=== PATIENT | male | born 2000 | race Caucasian/White ===

== ENCOUNTER 2022-10-31 00:09 | Inpatient (IN) | payer OTHER ==
[~2022-10-31] VITALS: Ht 175.3 cm; Wt 85.0 kg
[2022-10-31 00:59] LABS: HEMATOCRIT 39.7 % (42.0-52.0); HEMOGLOBIN 13.8 g/dl (13.5-17.5); MEAN CORPUSCULAR HEMOGLOBIN 31.2 pg (27.0-33.0); MEAN CORPUSCULAR HGB CONC 34.8 g/dl (32.0-36.5); MEAN CORPUSCULAR VOLUME 89.6 fl (80.0-96.0); PLATELET COUNT, AUTOMATED 339 10^3/uL (150-450); RED BLOOD COUNT 4.43 10^6/uL (4.30-6.10)
[2022-10-31 01:03] LABS: ETHYL ALCOHOL (ETHANOL) 0.028 % (0.000-0.010)
[2022-10-31 01:05] LABS: BILIRUBIN,DIRECT 0.1 MG/DL (<0.4); SALICYLATE LEVEL < 3.0 MG/DL (<30)
[2022-10-31 01:06] LABS: ACETAMINOPHEN LEVEL < 2.0 UG/ML (10.0-20.0); ALBUMIN 4.2 G/DL (3.2-5.2); ALKALINE PHOSPHATASE 73 U/L (46-116); ALT/SGPT 21 U/L (7.0-40); AST/SGOT 21 U/L (<34); BILIRUBIN,TOTAL 0.3 MG/DL (0.3-1.2); BLOOD UREA NITROGEN 6 MG/DL (9-23); CALCIUM LEVEL 8.9 MG/DL (8.5-10.1); CARBON DIOXIDE LEVEL 30 MMOL/L (20-31); CHLORIDE LEVEL 107 MMOL/L (98-107); CREATININE FOR GFR 0.81 MG/DL (0.70-1.30); GLOMERULAR FILTRATION RATE > 60.0 (>60); GLUCOSE, FASTING 94 MG/DL (60-100); POTASSIUM SERUM 4.3 MMOL/L (3.5-5.1); SODIUM LEVEL 143 MMOL/L (136-145); TOTAL PROTEIN 7.1 G/DL (5.7-8.2)
[2022-10-31 01:08] LABS: THYROID STIMULATING HORMONE 2.239 uIU/ML (0.55-4.78)
[2022-10-31 01:13] LABS: RSV AMPLIFICATION NEGATIVE (NEGATIVE)
[2022-10-31 01:24] LABS: AMPHETAMINES LEVEL URINE NEGATIVE (NEGATIVE); BARBITURATES URINE NEGATIVE (NEGATIVE); BENZODIAZEPINES URINE NEGATIVE (NEGATIVE); CANNABINOIDS URINE NEGATIVE (NEGATIVE); COCAINE METABOLITE URINE NEGATIVE (NEGATIVE); METHADONE URINE NEGATIVE (NEGATIVE); OPIATES URINE NEGATIVE (NEGATIVE); PHENCYCLIDINE URINE NEGATIVE (NEGATIVE)
[2022-10-31] MEDS ORDERED: FERR1TAB8 PO (02:54)
[2022-10-31] MEDS ORDERED: HOME MED LIST COMPLETE! XX SCH (02:55)
[2022-10-31] MEDS ORDERED: MOM 30ML SUSPENSION UDC PO PRN (13:10)
[2022-10-31] MEDS ORDERED: MAALOX 30 ML SUSP *UDC PO PRN (13:10)
[2022-10-31] MEDS ORDERED: LORazepam 2 MG TAB PO PRN (13:10)
[2022-10-31] MEDS ORDERED: ACETAMINOPHEN TAB 650MG DOSE (2X325MG) PO PRN (13:10)
[2022-10-31] MEDS: THIAMINE 100 MG TAB PO SCH ×2 (13:46→22:14)
[2022-10-31] MEDS: FERROUS SULFATE 325MG TAB PO SCH (13:46)
[2022-10-31] MEDS: MULTIVITAMINS/MINERALS THERAP 1 TAB PO SCH (13:46)
[2022-10-31] MEDS: FOLIC ACID 1MG TAB PO SCH (13:46)
[2022-10-31 20:30] VITALS: BP 123/74
[2022-10-31 20:45] VITALS: BP 123/74
[2022-11-01 06:00] VITALS: BP 108/55
[2022-11-01 06:44] VITALS: BP 108/55
[2022-11-01] MEDS: NICOTINE 21MG/24HR 1 EA TRANSDERMAL TD PRN (08:19)
[2022-11-01] MEDS: FOLIC ACID 1MG TAB PO SCH (08:20)
[2022-11-01] MEDS: MULTIVITAMINS/MINERALS THERAP 1 TAB PO SCH (08:20)
[2022-11-01] MEDS: THIAMINE 100 MG TAB PO SCH ×2 (08:20→21:35)
[2022-11-01] MEDS: FERROUS SULFATE 325MG TAB PO SCH (08:20)
[2022-11-01 14:00] VITALS: BP 140/66
[2022-11-01 16:35] VITALS: BP 140/66
[2022-11-01] MEDS: traZODone 50 MG TAB PO PRN (21:36)
[2022-11-01 23:35] VITALS: BP 0/0
[2022-11-02 06:34] VITALS: BP 109/56
[2022-11-02] MEDS: MULTIVITAMINS/MINERALS THERAP 1 TAB PO SCH (08:34)
[2022-11-02] MEDS: FOLIC ACID 1MG TAB PO SCH (08:34)
[2022-11-02] MEDS: NICOTINE 21MG/24HR 1 EA TRANSDERMAL TD PRN (08:34)
[2022-11-02] MEDS: FERROUS SULFATE 325MG TAB PO SCH (08:34)
[2022-11-02 09:45] VITALS: BP 143/71
[2022-11-02] MEDS ORDERED: ONDANSETRON 4MG TAB PO PRN (09:55)
[2022-11-02] MEDS: FLUoxetine 10 MG CAP PO SCH (12:03)
[2022-11-02 16:22] VITALS: BP 100/59
[2022-11-02] MEDS: traZODone 50 MG TAB PO PRN (20:09)
[2022-11-03 05:53] VITALS: BP 110/54
[2022-11-03] MEDS: FOLIC ACID 1MG TAB PO SCH (08:50)
[2022-11-03] MEDS: FLUoxetine 10 MG CAP PO SCH (08:50)
[2022-11-03] MEDS: MULTIVITAMINS/MINERALS THERAP 1 TAB PO SCH (08:50)
[2022-11-03] MEDS: FERROUS SULFATE 325MG TAB PO SCH (08:50)
[2022-11-03 19:21] VITALS: BP 150/72
[2022-11-03] MEDS: traZODone 50 MG TAB PO PRN (20:22)
[2022-11-04 06:19] VITALS: BP 115/57
[2022-11-04] MEDS: FOLIC ACID 1MG TAB PO SCH (08:22)
[2022-11-04] MEDS: MULTIVITAMINS/MINERALS THERAP 1 TAB PO SCH (08:22)
[2022-11-04] MEDS: FLUoxetine 10 MG CAP PO SCH (08:22)
[2022-11-04] MEDS: FERROUS SULFATE 325MG TAB PO SCH (08:22)
[2022-11-04] MEDS ORDERED: FLUoxetine 10 MG CAP PO ONE (10:15)
[2022-11-04 18:34] VITALS: BP 147/64
[2022-11-04] MEDS: traZODone 50 MG TAB PO PRN (20:18)
[2022-11-05 06:36] VITALS: BP 116/56
[2022-11-05] MEDS: FERROUS SULFATE 325MG TAB PO SCH (08:22)
[2022-11-05] MEDS: FOLIC ACID 1MG TAB PO SCH (08:23)
[2022-11-05] MEDS: MULTIVITAMINS/MINERALS THERAP 1 TAB PO SCH (08:23)
[2022-11-05] MEDS ORDERED: FLUO10CA18 PO (08:36)
[2022-11-05] MEDS ORDERED: FLUoxetine 10 MG CAP PO SCH (09:00)
== END 2022-11-05 10:06 | disposition home or self-care (01) | DRG 882 ==
LOC: M ED 00:09 → M ED INP 13:09 → M PSY 20:24
PROVIDERS: ADMIT Student in an Organized Health Care Education/Training Program; ATTEND Psychiatry & Neurology Psychiatry
DX: F43.22 Adjustment disorder with anxiety (principal); R45.851 Suicidal ideations; F10.10 Alcohol abuse, uncomplicated; F32.9 Major depressive disorder, single episode, unspecified; F17.200 Nicotine dependence, unspecified, uncomplicated